=== PATIENT | male | born 1950 | race Caucasian/White ===

== ENCOUNTER → 2020-06-03 | Outpatient (CLI) | payer MEDICARE, OTHER ==
[~2020-06-03] MED LIST: AMARYL4 MG PO; AMLODIPINE BESYL5 MG PO; ANTIVERT 25MG T25 MG PO; ASPIRIN CHEWABL81 MG PO; B-125000 MC2 PO; CARDURA 2MG TAB2 MG PO; COMBIVENT RESPIM4 GM INH; COREG 25MG TAB25 MG PO; CRESTOR20 MG PO; DEXAMETHASONE6 MG PO; DOXYCYCLINE HY100 MG PO; FERROUS SULFAT325 M2 PO; FLEXERIL 10 MG10 MG PO; FUROSEMIDE40 MG PO; HYDRALAZINE HCL10 MG PO; IPRATROPIU0.2 MG/1 M INH; IRON325 M1 PO; ISOSORBIDE MONO30 MG PO; LANTUS SOL100 UNIT/1 SQ; LASIX20 MG PO; LASIX40 MG PO; LEVAQUIN500 MG PO; NEUT PO; OMNICEF 300 MG300 MG PO; PERCOCET 5/325 T1 EA PO; PRAVACHOL80 MG PO; PROVENTIL HFA6.7 GM INH; ROBITUSSIN AC480 ML PO; SODIUM BICARBO650 M1 PO; VITAMIN D5000 UNIT PO; ZOFRAN4 MG PO; ZYLOPRIM 100 M100 MG PO
== END ==
LOC: KOH-I 11:44
DX: R07.81 Pleurodynia (principal)
CPT/HCPCS: 71101

== ENCOUNTER 2020-06-19 17:24 | Inpatient (IN) | payer MEDICARE, OTHER ==
[~2020-06-19] VITALS: Ht 180.3 cm; Wt 87.1 kg
[~2020-06-19 17:24] MED LIST changes: -COMBIVENT RESPIM4 GM INH; -CRESTOR20 MG PO; -DEXAMETHASONE6 MG PO; -SODIUM BICARBO650 M1 PO
[2020-06-19 18:20] LABS: HEMOGLOBIN 11.7 gm/dl (14.0-17.5); RED BLOOD COUNT 3.95 M/UL (4.20-5.50); WHITE BLOOD COUNT 7.1 K/UL (4.5-11.0)
[2020-06-19] MEDS ORDERED: CRESTOR20 MG PO (22:30)
[2020-06-20 07:24] LABS: RED BLOOD COUNT 3.45 M/UL (4.20-5.50); WHITE BLOOD COUNT 4.3 K/UL (4.5-11.0)
[2020-06-20] MEDS ORDERED: SODIUM BICARBO650 M1 PO (21:07)
[2020-06-21 08:28] LABS: HEMOGLOBIN 10.2 gm/dl (14.0-17.5); RED BLOOD COUNT 3.47 M/UL (4.20-5.50); WHITE BLOOD COUNT 8.3 K/UL (4.5-11.0)
[2020-06-21] MEDS ORDERED: COMBIVENT RESPIM4 GM INH (11:53)
[2020-06-21] MEDS ORDERED: DEXAMETHASONE6 MG PO (12:03)
[2020-06-21] MEDS ORDERED: DOXYCYCLINE HY100 MG PO (12:03)
== END 2020-06-21 12:46 | disposition home health service (06) | DRG 177 ==
LOC: ER1 17:24 → CDU 22:20 → MED SURG 4 22:20
PROVIDERS: Emergency Medicine; Internal Medicine; ADMIT Family Medicine
PROC: 8E0ZXY6 Isolation (ICD-10-PCS; principal; 2020-06-19)
DX: U07.1 COVID-19 (principal); J12.82 Pneumonia due to coronavirus disease 2019; J96.01 Acute respiratory failure with hypoxia; I50.43 Acute on chronic combined systolic (congestive) and diastolic (congestive) heart failure; N18.4 Chronic kidney disease, stage 4 (severe); I13.0 Hypertensive heart and chronic kidney disease with heart failure and stage 1 through stage 4 chronic kidney disease, or unspecified chronic kidney disease; E78.5 Hyperlipidemia, unspecified; I25.10 Atherosclerotic heart disease of native coronary artery without angina pectoris; D63.1 Anemia in chronic kidney disease; E11.22 Type 2 diabetes mellitus with diabetic chronic kidney disease; M10.9 Gout, unspecified; G47.33 Obstructive sleep apnea (adult) (pediatric); Z88.8 Allergy status to other drugs, medicaments and biological substances; Z95.820 Peripheral vascular angioplasty status with implants and grafts; Z79.82 Long term (current) use of aspirin; Z95.1 Presence of aortocoronary bypass graft; Z79.4 Long term (current) use of insulin; Z79.899 Other long term (current) drug therapy
CPT/HCPCS: 36415; 71045; 80053; 82550; 82553; 82728; 82962; 83615; 83874; 83880; 84439; 84443; 84484; 85025; 85027; 85379; 86140; 86900; 86901; 87040; 90471; 93005; 94760; 96372; 96374; 96375; 99285; J0696; J1100; J1644; J1940; U0002

== ENCOUNTER 2020-06-25 12:41 | Inpatient (IN) | payer MEDICARE, OTHER ==
[~2020-06-25] VITALS: Ht 175.3 cm; Wt 89.0 kg
[~2020-06-25 12:41] MED LIST changes: +COMBIVENT RESPIM4 GM INH; +CRESTOR20 MG PO; +DEXAMETHASONE6 MG PO; +SODIUM BICARBO650 M1 PO
[2020-06-25 13:55] LABS: HEMOGLOBIN 11.4 gm/dl (14.0-17.5); RED BLOOD COUNT 3.89 M/UL (4.20-5.50); WHITE BLOOD COUNT 12.5 K/UL (4.5-11.0)
[2020-06-25] MEDS ORDERED: SODIUM BICARBO650 M1 PO (16:42)
[2020-06-26 06:15] LABS: HEMOGLOBIN 10.1 gm/dl (14.0-17.5); WHITE BLOOD COUNT 9.6 K/UL (4.5-11.0)
[2020-06-26 06:28] LABS: RED BLOOD COUNT 3.46 M/UL (4.20-5.50)
[2020-06-27 07:34] LABS: RED BLOOD COUNT 3.6 M/UL (4.20-5.50); WHITE BLOOD COUNT 11.6 K/UL (4.5-11.0)
[2020-06-28 04:02] LABS: HEMOGLOBIN 10.3 gm/dl (14.0-17.5); RED BLOOD COUNT 3.54 M/UL (4.20-5.50); WHITE BLOOD COUNT 10.4 K/UL (4.5-11.0)
[2020-06-29 05:00] LABS: HEMOGLOBIN 10.7 gm/dl (14.0-17.5); RED BLOOD COUNT 3.7 M/UL (4.20-5.50); WHITE BLOOD COUNT 12.9 K/UL (4.5-11.0)
[2020-06-30 05:12] LABS: HEMOGLOBIN 10.6 gm/dl (14.0-17.5); RED BLOOD COUNT 3.67 M/UL (4.20-5.50); WHITE BLOOD COUNT 13.6 K/UL (4.5-11.0)
[2020-07-02 02:58] LABS: RED BLOOD COUNT 4.14 M/UL (4.20-5.50); WHITE BLOOD COUNT 26.3 K/UL (4.5-11.0)
[2020-07-03 04:12] LABS: HEMOGLOBIN 11.8 gm/dl (14.0-17.5); RED BLOOD COUNT 4.12 M/UL (4.20-5.50); WHITE BLOOD COUNT 26.9 K/UL (4.5-11.0)
[2020-07-04 02:43] LABS: HEMOGLOBIN 11.9 gm/dl (14.0-17.5); RED BLOOD COUNT 4.2 M/UL (4.20-5.50); WHITE BLOOD COUNT 26.5 K/UL (4.5-11.0)
--- NOTE | 2020-07-04 20:12 | NUR ---
ARTIST REPRESENTATIVE ASSESSMENT COMPLETE. PT IS CURRENTLY WEARING BIPAP, NOT TRYING TO REMOVE THE MASK AT THIS TIME. O2 REMAINS AT 88%. PT APPEARS COMFORTABLE, NO OUTWARD SIGNS OF DISTRESS.
--- NOTE | 2020-07-05 22:00 | NUR ---
PATIENT AT 2109, TWO NURSES VERIFIED (DAISY, RN AND HOSSEIN RN). , JASMINE, NOTIFIED AT 2119, 'S INSTRUCTIONS ARE TO CALL [facility]. PHYSICIAN NOTIFIED IN PERSON PHYSICIAN WAS ON PCU AT TIME OF . TANK CALLED, AWAITING TANK'S CALL BACK BEFORE NOTIFYING HOME PER TANK'S INSTRUCTIONS. PATIENT HAS BEEN SHAVED PER HIS 'S REQUEST AND PREPARED FOR HOME TO [facility] [employer].
--- NOTE | 2020-07-05 23:52 | NUR ---
[facility] HAS PICKED PATIENT UP TO TRANSFER TO THEIR FACILITY
== END 2020-07-06 21:10 | disposition expired | DRG 871 ==
LOC: ER1 12:41 → PROG CARE 15:30 → CCU 15:30 → CDU 15:30 → PROG CARE 19:47 → CCU 06-26 10:45 → 2 EAST 06-26 17:32 → PROG CARE 06-30 11:23
PROVIDERS: Internal Medicine; Internal Medicine Nephrology; Student in an Organized Health Care Education/Training Program; ADMIT Family Medicine
PROC: 8E0ZXY6 Isolation (ICD-10-PCS; 2020-06-25)
PROC: 5A0955A Assistance with Respiratory Ventilation, Greater than 96 Consecutive Hours, High Flow/Velocity Cannula (ICD-10-PCS; 2020-06-25)
PROC: XW13325 Transfusion of Convalescent Plasma (Nonautologous) into Peripheral Vein, Percutaneous Approach, New Technology Group 5 (ICD-10-PCS; principal; 2020-06-27)
DX: A41.89 Other specified sepsis (principal); U07.1 COVID-19; J12.82 Pneumonia due to coronavirus disease 2019; J15.9 Unspecified bacterial pneumonia; I50.23 Acute on chronic systolic (congestive) heart failure; J80 Acute respiratory distress syndrome; I13.0 Hypertensive heart and chronic kidney disease with heart failure and stage 1 through stage 4 chronic kidney disease, or unspecified chronic kidney disease; N18.4 Chronic kidney disease, stage 4 (severe); I42.9 Cardiomyopathy, unspecified; N17.9 Acute kidney failure, unspecified; E87.2 Acidosis; I25.10 Atherosclerotic heart disease of native coronary artery without angina pectoris; E78.5 Hyperlipidemia, unspecified; G47.33 Obstructive sleep apnea (adult) (pediatric); D64.9 Anemia, unspecified; M10.9 Gout, unspecified; N26.1 Atrophy of kidney (terminal); E11.21 Type 2 diabetes mellitus with diabetic nephropathy; T38.0X5A Adverse effect of glucocorticoids and synthetic analogues, initial encounter; D72.828 Other elevated white blood cell count; R65.20 Severe sepsis without septic shock; E11.65 Type 2 diabetes mellitus with hyperglycemia; Z51.5 Encounter for palliative care; Z66 Do not resuscitate; E11.22 Type 2 diabetes mellitus with diabetic chronic kidney disease; E11.51 Type 2 diabetes mellitus with diabetic peripheral angiopathy without gangrene; Z95.820 Peripheral vascular angioplasty status with implants and grafts; Z95.1 Presence of aortocoronary bypass graft; Z88.8 Allergy status to other drugs, medicaments and biological substances; Z79.82 Long term (current) use of aspirin; Z79.4 Long term (current) use of insulin; Z79.899 Other long term (current) drug therapy
CPT/HCPCS: 36415; 36600; 71045; 71111; 80048; 80053; 81001; 82550; 82553; 82728; 82803; 82962; 83605; 83615; 83690; 83735; 83874; 83880; 84100; 84132; 84484; 85025; 85027; 85379; 85610; 85730; 86140; 86900; 86901; 86927; 87040; 87086; 90471; 93005; 94640; 94660; 94664; 94760; 96365; 96366; 96368; 96375; 99284; J0456; J0696; J1100; J1205; J1644; J1940; J2020; J2060; J2185; J2270; J2405; J2765; J2920; J7030; J7040; U0002